=== PATIENT | female | born 1975 | race Caucasian/White ===

== ENCOUNTER 2022-10-05 04:09 | Day surgery (SDC) | payer OTHER ==
[2022-10-04 15:03] VITALS: BMI 42.7
[2022-10-05] MEDS ORDERED: MIDAZOLAM HCL 2 MG/2 ML SINGLE DOSE VIAL ONE (10:22)
[2022-10-05] MEDS ORDERED: ceFAZolin SODIUM 1 GM VIAL IVPB ONE (11:15)
[2022-10-05] MEDS ORDERED: LIDOCAINE 1%/EPI 1:100000 (50 ML MULTI DOSE VIAL) INF ONE (11:31)
[2022-10-05] MEDS ORDERED: SUCCINYLCHOLINE CHLORIDE 200 MG/10 ML SYRINGE ONE (11:46)
[2022-10-05] MEDS ORDERED: ROCURONIUM BROMIDE 50 MG/5 ML SYRINGE ONE ×2 (11:46→13:58)
[2022-10-05] MEDS ORDERED: PROPOFOL 40 ML ONE (12:26)
[2022-10-05] MEDS ORDERED: SIMETHICONE 80 MG TAB.CHEW (FP) PO PRN (15:52)
[2022-10-05] MEDS ORDERED: KETOROLAC TROMETHAMINE 30 MG/1 ML VIAL IVPUSH PRN (15:52)
[2022-10-05] MEDS ORDERED: BISACODYL 5 MG TABLET.DR (FP) PO PRN (15:52)
[2022-10-05] MEDS ORDERED: ACETAMINOPHEN 325 MG TABLET (FP) PO PRN (15:52)
[2022-10-05] MEDS ORDERED: ONDANSETRON 4 MG/2 ML VIAL IVPUSH PRN (15:52)
[2022-10-05] MEDS ORDERED: DOCUSATE SODIUM 100 MG CAPSULE (FP) PO PRN (15:52)
[2022-10-05] MEDS: CEFAZOLIN 1 GM in DEXTROSE 5%-WATER - 50 ML IVPB SCH (18:20)
[2022-10-05 18:40] LABS: HEMATOCRIT 37.5 % (32.4-45.2); HEMOGLOBIN 12.4 GM/dL (10.7-15.3); MCHC 33.1 g/dl (32.0-36.0); MEAN CELL VOLUME 78.4 fl (80-96); MEAN PLT VOLUME 6.9 fl (7.5-11.1); PLATELET COUNT 283 10^3/uL (134-434); RBC 4.78 M/mm3 (3.60-5.2); WHITE BLOOD COUNT 15.8 K/mm3 (4.0-10.0)
[2022-10-05] MEDS ORDERED: ACETAMINOPHEN 1000 MG/100 ML BAG IVPB PRN (21:30)
[2022-10-05] MEDS: oxyCODONE HCL 5 MG TABLET PO PRN (22:17)
[2022-10-06] MEDS: CEFAZOLIN 1 GM in DEXTROSE 5%-WATER - 50 ML IVPB SCH (02:25)
[2022-10-06 02:38] VITALS: RESP 20
[2022-10-06 08:06] LABS: HEMATOCRIT 33.3 % (32.4-45.2); HEMOGLOBIN 11.2 GM/dL (10.7-15.3); MCH 26.3 pg (25.7-33.7); MCHC 33.6 g/dl (32.0-36.0); MEAN CELL VOLUME 78.3 fl (80-96); PLATELET COUNT 273 10^3/uL (134-434); RBC 4.26 M/mm3 (3.60-5.2); RDW 15.1 % (11.6-15.6); WHITE BLOOD COUNT 11.2 K/mm3 (4.0-10.0)
[2022-10-06] MEDS: oxyCODONE HCL 5 MG TABLET PO PRN (10:18)
[2022-10-06] MEDS ORDERED: ACETAMINOPHEN 500 MG TABLET (FP) PO SCH (12:15)
[2022-10-06] MEDS ORDERED: IBUPROFEN 600 MG TABLET (FP) PO SCH (14:00)
[2022-10-06 15:37] VITALS: BP 128/70; PULSE 78; TEMP 99.3
== END 2022-10-06 17:36 | disposition home or self-care (01) ==
LOC: JASUSAT 04:09 → JASU-SURG 04:09 → J8W 21:15 → JASUSAT 10-06 17:36
PROVIDERS: ATTEND Specialist
PROC: 8E0W4CZ Robotic Assisted Procedure of Trunk Region, Percutaneous Endoscopic Approach (ICD-10-PCS; 2022-10-05)
PROC: 0UT94ZZ Resection of Uterus, Percutaneous Endoscopic Approach (ICD-10-PCS; principal; 2022-10-05 10:00)
PROC: 0UT74ZZ Resection of Bilateral Fallopian Tubes, Percutaneous Endoscopic Approach (ICD-10-PCS; 2022-10-05 10:00)
DX: N92.0 Excessive and frequent menstruation with regular cycle (principal); D25.1 Intramural leiomyoma of uterus; D25.2 Subserosal leiomyoma of uterus; N80.03 Adenomyosis of the uterus; E66.01 Morbid (severe) obesity due to excess calories
CPT/HCPCS: 58573; S2900; 36415; 81025; 85027; 86850; 86900; 86901; 88307-TC; 94010; 94760; C9803-CS; U0003; U0005

== ENCOUNTER 2024-07-09 04:36 | Day surgery (SDC) | payer OTHER ==
[2024-07-04 14:54] VITALS: BMI 45.8
[2024-07-09 08:40] VITALS: TEMP 98.3
[2024-07-09 09:20] VITALS: BP 116/59; PULSE 66; RESP 15
== END 2024-07-09 09:20 | disposition home or self-care (01) ==
LOC: JASU-ENDO 04:36
PROVIDERS: ATTEND Internal Medicine Gastroenterology
PROC: 0DJD8ZZ Inspection of Lower Intestinal Tract, Via Natural or Artificial Opening Endoscopic (ICD-10-PCS; principal; 2024-07-09 08:00)
DX: Z12.11 Encounter for screening for malignant neoplasm of colon (principal); K64.8 Other hemorrhoids